=== PATIENT | male | born 1995 | race Caucasian/White ===

== ENCOUNTER 2017-05-09 17:42 | Emergency (ER) | payer BC, OTHER ==
[2017-05-09 18:02] VITALS: TEMP 98.6; O2SAT 97
[2017-05-09] MEDS ORDERED: IBUPROFEN 600 MG TAB PO ONE (18:41)
[2017-05-09] MEDS ORDERED: ACETAMINOPHEN 500 MG TAB PO ONE (18:41)
--- NOTE | 2017-05-09 18:41 | EDPHY ---
H & P Stated Complaint: R shoulder pain snowboarding yesterday no fall but twist- tweak motion - Personal History Current Tetanus/Diphtheria Vaccine: Unsure Current Tetanus Diphtheria and Acellular Pertussis (TDAP): Unsure - Medical/Surgical History Hx Asthma: No Hx Chronic Respiratory Disease: No Hx Diabetes: No Hx Cardiac Disease: No Hx Renal Disease: No Hx Cirrhosis: No Hx Alcoholism: No Hx HIV/AIDS: No Hx Splenectomy or Spleen Trauma: No Other PMH: denies - Social History Smoking Status: Current every day smoker HPI/ROS: Chief complaint: Right shoulder injury History of present illness: This is a 22-year-old male who presents to the emergency department for right shoulder injury. Patient was snowboarding yesterday, he went to sent back, put his arm out to brace him sitting down and jammed his shoulder. Since then he has had pain in the shoulder. Progressively worsening. It is making it difficult to move the shoulder today. He denies other associated signs or symptoms including no direct trauma to the shoulder, no report of abnormal coolness or paresthesias in the shoulder or right arm. No report of pain or trauma to the head or neck. No other complaints. (Chris Bradley) - Physical Exam Exam: General Appearance: Alert, nontoxic. Eyes: Pupils equal and round no injection. Respiratory: Chest is non tender, lungs are clear to auscultation. Cardiovascular: regular rate and rhythm. Radial pulses 2+. Musculoskeletal: The head is nontender. Neck is supple, good range of motion and non tender. The spine is nontender to palpation along its entire length. There is tenderness over the right AC joint as well as the lateral aspect of the shoulder. He has decreased active range of motion above 90 degrees. However he has good passive range of motion. The rest of the right upper extremity is unremarkable. Skin: No rashes or lesions. Neurological: Alert and oriented x4. Strength and sensation intact and symmetrical including the right upper extremity. (Chris Bradley) Constitutional: Initial Vital Signs Temperature (C) 37.0 C 05/09/17 17:58 Heart Rate 76 05/09/17 17:58 Respiratory Rate 16 05/09/17 17:58 Blood Pressure 150/78 H 05/09/17 17:58 O2 Sat (%) 97 05/09/17 17:58 O2 Delivery Mode Room Air Allergies/Adverse Reactions: No Known Allergies Allergy (Unverified 05/09/17 17:57) Home Medications: Medication Instructions Recorded NK [No Known Home Meds] 05/09/17 Medical Decision Making - Diagnostics Imaging: I viewed and interpreted images myself Procedures: Procedure: Splint placement. A sling was applied. After application of the splint I returned and re- examined the patient. The splint was adequately immobilizing the joint and distal to the splint the patient's circulation and sensation was intact. (Chris Bradley) ED Course/Re-evaluation: Patient is seen under the supervision of my secondary supervising physician Dr. Cindi Bermeo. Patient presents to the emergency department for a right shoulder injury. X-rays are negative. The arm appears neurovascularly intact. I suspect a soft tissue injury. He is placed in a sling. Home care is discussed. He is referred to Orthopedics for recheck. Return precautions are given. Patient voiced understanding and agreement with plan. (Chris Bradley) Differential Diagnosis: Included but not limited to contusion, sprain, strain, bony fracture, joint dislocation (Chris Bradley) Other Provider: The patient was evaluated and managed by the Physician Automated Logistics Specialist.My co- signature indicates that I have reviewed this chart and I agree with the findings and plan of care as documented. I am the secondary supervising physician. (Cindi Bermeo) - Data Points Medications Given: Discontinued Medications Acetaminophen (Tylenol) 1,000 mg PO EDNOW ONE Stop: 05/09/17 18:42 Last Admin: 05/09/17 18:47 Dose: 1,000 mg Ibuprofen (Motrin) 600 mg PO EDNOW ONE Stop: 05/09/17 18:42 Last Admin: 05/09/17 18:47 Dose: 600 mg Departure - Departure Disposition: Home, Routine, Self-Care Clinical Impression: Shoulder strain Qualifiers: Encounter type: initial encounter Laterality: right Qualified Code(s): S46.911A - Strain of unspecified muscle, fascia and tendon at shoulder and upper arm level, right arm, initial encounter Condition: Good Instructions: Shoulder Sprain (ED) Additional Instructions: Follow-up with orthopedics this week for continued evaluation and care Use ibuprofen 600 mg 3 times daily for the next 2-3 days for symptom control In addition You can take a 1000 mg of Tylenol 3 times daily for the next 2-3 days for symptom control Ice the injury, 20 min on, 3 times daily for the next 2 days If symptoms worsen or new symptoms develop return to the emergency room for recheck Referrals: Jaime Grullon MD [Medical Doctor] - As per Instructions
[2017-05-09 18:49] VITALS: BP 128/84; PULSE 64; RESP 18
== END 2017-05-09 18:49 | disposition home or self-care (01) ==
DX: S46.911A Strain of unspecified muscle, fascia and tendon at shoulder and upper arm level, right arm, initial encounter (principal); F17.200 Nicotine dependence, unspecified, uncomplicated; X58.XXXA Exposure to other specified factors, initial encounter; Y99.8 Other external cause status; Y93.23 Activity, snow (alpine) (downhill) skiing, snowboarding, sledding, tobogganing and snow tubing